=== PATIENT | male | born 1950 | race Caucasian/White ===

== ENCOUNTER 2019-02-08 15:44 | Inpatient (IN) ==
[2019-02-08] MEDS ORDERED: methylPREDNISolone 125 MG/2 ML VIAL IVP ONE (15:50)
[2019-02-08] MEDS ORDERED: Ipratropium/Albuterol Neb 3 ML IH ONE (15:51)
--- NOTE | 2019-02-08 15:53 | Emergency Department Note ---
Disposition Clinical Impression: Hypoxia, COPD exacerbation Sepsis Qualifiers: Sepsis type: sepsis due to unspecified organism Qualified Code(s): A41.9 - Sepsis, unspecified organism Pneumonia Qualifiers: Pneumonia type: due to unspecified organism Laterality: left Lung location: lower lobe of lung Qualified Code(s): J18.1 - Lobar pneumonia, unspecified organism Disposition: Admitted As Inpatient Condition: Fair Time of Disposition: 17:26 General Adult HPI - General Stated complaint: ERNIE Time Seen by Provider: 02/08/19 15:46 Source: patient Mode of arrival: private vehicle Limitations: no limitations Nursing Notes Reviewed: Yes Vital Signs Reviewed: Yes - History of Present Illness HPI Narrative: Patient is a 68-year-old male with past medical history including COPD, not on oxygen at home, hypertension presenting with chief complaint of shortness of breath. The patient states several weeks ago, he found a tick on himself and went to his physician to have it removed. He states he was started on antibiotics for prevention of lyme. Since then, he complains of progressively worsening shortness of breath. He states it has been worse in the past 3 days. His breathing worsens with exertion. He denies chest pain. He states yesterday he felt like he had a fever however did not check his temperature. He complains of decreased appetite as well. He states today at lunchtime he was at [place] [employer] and did not feel like eating. When he was in the car, he suddenly developed shortness of breath and lightheadedness. He came here for further evaluation. In triage, he was hypoxic with oxygen saturation of 79%. - Related Data Allergies Allergy/AdvReac Type Severity Reaction Status Date / Time No Known Allergies Allergy Verified 07/30/18 12:58 All systems ED: reviewed and negative except as stated. Review of Systems: As Per HPI Constitutional: Reports: fever, chills Cardiovascular: Reports: other (lightheaded). Denies: chest pain, palpitations Respiratory: Reports: dyspnea. Denies: cough Gastrointestinal: Reports: nausea. Denies: abdominal pain, vomiting Musculoskeletal: Denies: back pain Neurological: Denies: headache, weakness Past Medical History - Past Medical History Attestation: Yes The following information was validated with the patient. Source: patient Medical history: Reports: asthma, COPD, hypertension Surgical history: Reports: non-contributory - Social History Smoking Status: Former smoker Physical Exam - General Limitations: no limitations General appearance: alert, other (Moderate distress with conversational dyspnea and hypoxia) - Head Head exam: atraumatic, normocephalic - Eye Eye exam: Present: normal appearance, EOMI - ENT ENT exam: normal exam, mucous membranes moist - Neck Neck exam: Present: normal inspection, trachea midline - Chest Chest inspection: Present: normal inspection, symmetric chest wall rise - Respiratory Respiratory exam: Present: other (Diminished breath sounds bilaterally, tachypnea, conversational dyspnea. No wheezing or crackles) - Cardiovascular Cardiovascular exam: Present: normal rhythm, tachycardia - Abdominal Exam Abdominal exam: Present: soft, Non-Tender. Absent: distention, guarding - Extremities Exam Extremities exam: Present: normal capillary refill. Absent: pedal edema, calf tenderness - Neurological Exam Neurological exam: Present: alert, oriented X3 - Psychiatric Psychiatric exam: Present: normal affect, normal mood - Skin Skin exam: Present: warm, dry. Absent: cyanosis, diaphoresis, pallor Course Vital Signs Temperature 98.5 F 02/08/19 15:50 Pulse Rate 107 02/08/19 15:50 Respiratory Rate 25 02/08/19 15:50 Blood Pressure 120/87 02/08/19 15:50 O2 Sat by Pulse Oximetry 91 02/08/19 15:50 Temperature 98.5 F 02/08/19 15:50 Pulse Rate 95 02/08/19 17:17 Respiratory Rate 20 02/08/19 17:17 Blood Pressure 126/82 02/08/19 17:17 O2 Sat by Pulse Oximetry 93 02/08/19 17:17 Oxygen Delivery Oxygen Delivery Nasal Cannula Medical Decision Making - [facility] Narrative Medical decision making narrative: The patient was brought back to the room and was found to be hypoxic with oxygen saturation of 79%. He does have history of emphysema and does not wear oxygen at home. He was placed on 4 L of oxygen with oxygen saturation increasing to 92%. Will give the patient triple DuoNeb treatment. We will obtain chest x- ray, CBC, BMP, troponin, BNP. We will give him methylprednisolone as well. Patient denies history of blood clots, is not on anticoagulation. He denies cardiac history as well. No congestive heart failure, no lower extremity swell ing. Anticipate admission for hypoxia and COPD exacerbation. 16:40 CXR shows left basilar airspace disease due to atelectasis or developing pneumonia. Patient has leukocytosis, elevated lactic acid. He meets SIRS criteria. We will give the patient IV fluids, azithromycin and Rocephin. Blood cultures will be drawn. Patient will be admitted for dyspnea, hypoxia and sepsis likely secondary to pneumonia. 17:15 Reevaluated the patient after his DuoNeb treatment. He states he feels somewhat better. He is now on 2 L of oxygen, oxygen saturation is 92-94%. Breath sounds are increased bilaterally but still diminished, more on the left than on the right. No wheezing. Hospitalist has been paged for admission. 17:[address] Casillas, hospitalist who accepts admission - Medical Records Medical records reviewed: Yes I reviewed the patient's medical records. - Lab Data Lab results reviewed: Yes I reviewed the patient's lab results. Result diagrams: 02/08/19 16:00 02/08/19 16:00 Lab Results 02/08/19 02/08/19 02/08/19 Range/Units 16:00 16:00 16:00 WBC 15.9 H (4.3-11.1) K/mcL RBC 4.84 (4.19-5.50) M/mcL Hgb 15.5 (12.9-16.9) g/dL Hct 47.1 (37.5-50.1) % MCV 97.3 (83.0-100.0) fL MCH 32.0 (28.0-33.3) pg MCHC 32.9 (31.6-35.5) g/dL RDW 15.5 H (11.5-14.5) % Plt Count 375 (140-400) K/mcL MPV 9.2 L (9.4-12.4) fL Immature Gran % 0.6 (0-4) % Seg Neutrophils % 72.1 % Lymphocytes % 9.5 % Monocytes % 7.7 % Eosinophils % 9.8 % Basophils % 0.3 % Neutrophils # 11.5 H (1.6-8.9) K/mcL Lymphocytes # 1.5 (0.6-4.6) K/mcL Monocytes # 1.2 (0.0-1.3) K/mcL Eosinophils # 1.6 H (0.0-0.6) K/mcL Basophils # 0.0 (0.0-0.2) K/mcL PT (9.4-12.1) Seconds INR APTT (26.0-36.0) Seconds Sodium 139 (136-145) mEq/L Potassium 3.8 (3.5-5.1) mEq/L Chloride 105 (98-107) mEq/L Carbon Dioxide 26 (23-29) mEq/L BUN 15 (8-23) mg/dL Creatinine 1.10 (0.70-1.30) mg/dL Est GFR ( Amer) > 60 (> 60) Est GFR (Non-Af Amer) > 60 (> 60) BUN/Creatinine Ratio 14 (6-26) Glucose 101 (70-105) mg/dL Calculated Osmolality 289 (280-300) Lactic Acid 2.6 H (0.5-2.2) mmol/L Calcium 9.2 (8.6-10.3) mg/dL Total Bilirubin 1.0 (0.3-1.0) mg/dL Direct Bilirubin 0.2 (0.0-0.2) mg/dL Indirect Bilirubin 0.8 (0.0-1.2) mg/dL AST 24 (13-39) Units/L ALT 28 (7-52) Units/L Alkaline Phosphatase 96 (34-104) Units/L Troponin I 0.03 (< 0.04) ng/mL B-Natriuretic Peptide (Less than 100) pg/mL Serum Total Protein 6.7 (6.4-8.9) g/dL Albumin 3.6 (3.5-5.7) g/dL Globulin 3.1 (2.4-3.5) g/dL Albumin/Globulin Ratio 1.2 (1.1-2.2) 02/08/19 02/08/19 Range/Units 16:00 16:00 WBC (4.3-11.1) K/mcL RBC (4.19-5.50) M/mcL Hgb (12.9-16.9) g/dL Hct (37.5-50.1) % MCV (83.0-100.0) fL MCH (28.0-33.3) pg MCHC (31.6-35.5) g/dL RDW (11.5-14.5) % Plt Count (140-400) K/mcL MPV (9.4-12.4) fL Immature Gran % (0-4) % Seg Neutrophils % % Lymphocytes % % Monocytes % % Eosinophils % % Basophils % % Neutrophils # (1.6-8.9) K/mcL Lymphocytes # (0.6-4.6) K/mcL Monocytes # (0.0-1.3) K/mcL Eosinophils # (0.0-0.6) K/mcL Basophils # (0.0-0.2) K/mcL PT 13.0 H (9.4-12.1) Seconds INR 1.2 APTT 28.5 (26.0-36.0) Seconds Sodium (136-145) mEq/L Potassium (3.5-5.1) mEq/L Chloride (98-107) mEq/L Carbon Dioxide (23-29) mEq/L BUN (8-23) mg/dL Creatinine (0.70-1.30) mg/dL Est GFR ( Amer) (> 60) Est GFR (Non-Af Amer) (> 60) BUN/Creatinine Ratio (6-26) Glucose (70-105) mg/dL Calculated Osmolality (280-300) Lactic Acid (0.5-2.2) mmol/L Calcium (8.6-10.3) mg/dL Total Bilirubin (0.3-1.0) mg/dL Direct Bilirubin (0.0-0.2) mg/dL Indirect Bilirubin (0.0-1.2) mg/dL AST (13-39) Units/L ALT (7-52) Units/L Alkaline Phosphatase (34-104) Units/L Troponin I (< 0.04) ng/mL B-Natriuretic Peptide 93 (Less than 100) pg/mL Serum Total Protein (6.4-8.9) g/dL Albumin (3.5-5.7) g/dL Globulin (2.4-3.5) g/dL Albumin/Globulin Ratio (1.1-2.2) - Radiology Data Radiology results reviewed: Yes I reviewed the patient's radiology results. Chest X-Ray 02/08/19 15:50 IMPRESSION: 1. Left basilar airspace disease either due to atelectasis or developing pneumonia. D/ / Bhavin Pulido MD / Bhavin Pulido MD Interpreting Provider: Bhavin Pulido MD - EKG Data EKG #1 EKG attestation: Yes I reviewed and interpreted this EKG. EKG results narrative: EKG obtained at 1552 shows sinus tachycardia with heart rate 107, DE interval 166, QRS duration 90, QTc 479. No ST elevation or depression Attestation Statement - Attestation Attestation: I, Maximus Mauricio DO, examined this patient [id number] and my medical decision-making was reviewed with Dr. Coco Sinclair , Resident Physician. I agree with the documented findings, disposition and treatment plan as described except to the extent set forth below. I personally supervised and was present for the negrete/critical portions of the procedures completed by the resident documented below. Please see my progress notes for details.
[2019-02-08 16:12] LABS: Basophils % 0.3 %; Eosinophils # 1.6 K/mcL (0.0-0.6); Eosinophils % 9.8 %; Hematocrit 47.1 % (37.5-50.1); Hemoglobin 15.5 g/dL (12.9-16.9); Immature Granulocytes % 0.6 % (0-4); Lymphocytes # 1.5 K/mcL (0.6-4.6); Lymphocytes % 9.5 %; Mean Corpuscular HGB Conc 32.9 g/dL (31.6-35.5); Mean Corpuscular Volume 97.3 fL (83.0-100.0); Mean Platelet Volume 9.2 fL (9.4-12.4); Monocytes # 1.2 K/mcL (0.0-1.3); Monocytes % 7.7 %; Neutrophils # 11.5 K/mcL (1.6-8.9); Platelet Count 375 K/mcL (140-400); Red Blood Count 4.84 M/mcL (4.19-5.50); Red Cell Distribution Width 15.5 % (11.5-14.5); Segmented Neutrophils % 72.1 %
[2019-02-08 16:20] LABS: INR 1.2
[2019-02-08 16:23] LABS: Activated Partial Thrombo Time 28.5 Seconds (26.0-36.0)
[2019-02-08 16:33] LABS: Alanine Aminotransferase 28 Units/L (7-52); Albumin 3.6 g/dL (3.5-5.7); Albumin/Globulin Ratio 1.2 (1.1-2.2); Alkaline Phosphatase 96 Units/L (34-104); Aspartate Amino Transferase 24 Units/L (13-39); BUN/Creatinine Ratio 14 (6-26); Bilirubin,Direct 0.2 mg/dL (0.0-0.2); Bilirubin,Indirect 0.8 mg/dL (0.0-1.2); Blood Urea Nitrogen 15 mg/dL (8-23); Calcium 9.2 mg/dL (8.6-10.3); Carbon Dioxide 26 mEq/L (23-29); Chloride 105 mEq/L (98-107); Globulin 3.1 g/dL (2.4-3.5); Glucose 101 mg/dL (70-105); Osmolality,Calculated 289 (280-300); Potassium 3.8 mEq/L (3.5-5.1); Sodium 139 mEq/L (136-145); Total Protein 6.7 g/dL (6.4-8.9); Troponin I 0.03 ng/mL (< 0.04); eGFR For Non-African Americans > 60 (> 60)
[2019-02-08] MEDS ORDERED: 0.9 % Sodium Chloride 1,000 ML IVC ONE (16:38)
[2019-02-08] MEDS ORDERED: cefTRIAXone 1,000 MG in Water for inj. (sterile) 20 ML 10 ML IVP ONE (16:41)
[2019-02-08] MEDS ORDERED: Azithromycin 500 MG in D5% in Water 250 ML IVPB ONE (16:41)
[2019-02-08] MEDS ORDERED: traMADol 50 MG TABLET PO PRN (17:34)
[2019-02-08] MEDS ORDERED: Naloxone 0.4 MG/ML INJ IVP PRN (17:34)
[2019-02-08] MEDS ORDERED: D5% in Water 1,000 ML IVC PRN (17:37)
[2019-02-08] MEDS ORDERED: *HR* Dextrose 50 % in Water (Syg) 50 ML SYRINGE IVP PRN (17:37)
[2019-02-08] MEDS ORDERED: Dextrose Gel 15 GM/37.5 ML TUBE PO PRN ×2 (17:37)
--- NOTE | 2019-02-08 17:41 | Emergency Department Note ---
Disposition Clinical Impression: Hypoxia, COPD exacerbation Sepsis Qualifiers: Sepsis type: sepsis due to unspecified organism Qualified Code(s): A41.9 - Sepsis, unspecified organism Pneumonia Qualifiers: Pneumonia type: due to unspecified organism Laterality: left Lung location: lower lobe of lung Qualified Code(s): J18.1 - Lobar pneumonia, unspecified organism Disposition: Admitted As Inpatient Condition: Fair Time of Disposition: 17:42 General Adult HPI - General Chief complaint: ED Shortness of Breath/Dyspnea Stated complaint: ERNIE Time Seen by Provider: 02/08/19 15:46 Source: patient Mode of arrival: private vehicle Limitations: no limitations - History of Present Illness Pain Scale: 0 - Related Data Allergies Allergy/AdvReac Type Severity Reaction Status Date / Time No Known Allergies Allergy Verified 07/30/18 12:58 Constitutional: Reports: fever, chills Cardiovascular: Reports: other (lightheaded). Denies: chest pain, palpitations Respiratory: Reports: dyspnea. Denies: cough Gastrointestinal: Reports: nausea. Denies: abdominal pain, vomiting Musculoskeletal: Denies: back pain Neurological: Denies: headache, weakness Past Medical History - Past Medical History Medical history: Reports: asthma, COPD, hypertension Surgical history: Reports: non-contributory - Social History Smoking Status: Former smoker Smokeless Tobacco Status: No Alcohol use: Reports: none Drug use: Reports: none Physical Exam - General Limitations: no limitations General appearance: alert, other (Moderate distress with conversational dyspnea and hypoxia) Course Vital Signs Temperature 98.5 F 02/08/19 15:50 Pulse Rate 107 02/08/19 15:50 Respiratory Rate 25 02/08/19 15:50 Blood Pressure 120/87 02/08/19 15:50 O2 Sat by Pulse Oximetry 91 02/08/19 15:50 Temperature 98.5 F 02/08/19 15:50 Pulse Rate 95 02/08/19 17:17 Respiratory Rate 20 02/08/19 17:17 Blood Pressure 126/82 02/08/19 17:17 O2 Sat by Pulse Oximetry 93 02/08/19 17:17 Oxygen Delivery Oxygen Delivery Nasal Cannula Medical Decision Making - Lab Data Result diagrams: 02/08/19 16:00 02/08/19 16:00 Lab Results 02/08/19 02/08/19 02/08/19 Range/Units 16:00 16:00 16:00 WBC 15.9 H (4.3-11.1) K/mcL RBC 4.84 (4.19-5.50) M/mcL Hgb 15.5 (12.9-16.9) g/dL Hct 47.1 (37.5-50.1) % MCV 97.3 (83.0-100.0) fL MCH 32.0 (28.0-33.3) pg MCHC 32.9 (31.6-35.5) g/dL RDW 15.5 H (11.5-14.5) % Plt Count 375 (140-400) K/mcL MPV 9.2 L (9.4-12.4) fL Immature Gran % 0.6 (0-4) % Seg Neutrophils % 72.1 % Lymphocytes % 9.5 % Monocytes % 7.7 % Eosinophils % 9.8 % Basophils % 0.3 % Neutrophils # 11.5 H (1.6-8.9) K/mcL Lymphocytes # 1.5 (0.6-4.6) K/mcL Monocytes # 1.2 (0.0-1.3) K/mcL Eosinophils # 1.6 H (0.0-0.6) K/mcL Basophils # 0.0 (0.0-0.2) K/mcL PT (9.4-12.1) Seconds INR APTT (26.0-36.0) Seconds Sodium 139 (136-145) mEq/L Potassium 3.8 (3.5-5.1) mEq/L Chloride 105 (98-107) mEq/L Carbon Dioxide 26 (23-29) mEq/L BUN 15 (8-23) mg/dL Creatinine 1.10 (0.70-1.30) mg/dL Est GFR ( Amer) > 60 (> 60) Est GFR (Non-Af Amer) > 60 (> 60) BUN/Creatinine Ratio 14 (6-26) Glucose 101 (70-105) mg/dL Calculated Osmolality 289 (280-300) Lactic Acid 2.6 H (0.5-2.2) mmol/L Calcium 9.2 (8.6-10.3) mg/dL Total Bilirubin 1.0 (0.3-1.0) mg/dL Direct Bilirubin 0.2 (0.0-0.2) mg/dL Indirect Bilirubin 0.8 (0.0-1.2) mg/dL AST 24 (13-39) Units/L ALT 28 (7-52) Units/L Alkaline Phosphatase 96 (34-104) Units/L Troponin I 0.03 (< 0.04) ng/mL B-Natriuretic Peptide (Less than 100) pg/mL Serum Total Protein 6.7 (6.4-8.9) g/dL Albumin 3.6 (3.5-5.7) g/dL Globulin 3.1 (2.4-3.5) g/dL Albumin/Globulin Ratio 1.2 (1.1-2.2) 02/08/19 02/08/19 Range/Units 16:00 16:00 WBC (4.3-11.1) K/mcL RBC (4.19-5.50) M/mcL Hgb (12.9-16.9) g/dL Hct (37.5-50.1) % MCV (83.0-100.0) fL MCH (28.0-33.3) pg MCHC (31.6-35.5) g/dL RDW (11.5-14.5) % Plt Count (140-400) K/mcL MPV (9.4-12.4) fL Immature Gran % (0-4) % Seg Neutrophils % % Lymphocytes % % Monocytes % % Eosinophils % % Basophils % % Neutrophils # (1.6-8.9) K/mcL Lymphocytes # (0.6-4.6) K/mcL Monocytes # (0.0-1.3) K/mcL Eosinophils # (0.0-0.6) K/mcL Basophils # (0.0-0.2) K/mcL PT 13.0 H (9.4-12.1) Seconds INR 1.2 APTT 28.5 (26.0-36.0) Seconds Sodium (136-145) mEq/L Potassium (3.5-5.1) mEq/L Chloride (98-107) mEq/L Carbon Dioxide (23-29) mEq/L BUN (8-23) mg/dL Creatinine (0.70-1.30) mg/dL Est GFR ( Amer) (> 60) Est GFR (Non-Af Amer) (> 60) BUN/Creatinine Ratio (6-26) Glucose (70-105) mg/dL Calculated Osmolality (280-300) Lactic Acid (0.5-2.2) mmol/L Calcium (8.6-10.3) mg/dL Total Bilirubin (0.3-1.0) mg/dL Direct Bilirubin (0.0-0.2) mg/dL Indirect Bilirubin (0.0-1.2) mg/dL AST (13-39) Units/L ALT (7-52) Units/L Alkaline Phosphatase (34-104) Units/L Troponin I (< 0.04) ng/mL B-Natriuretic Peptide 93 (Less than 100) pg/mL Serum Total Protein (6.4-8.9) g/dL Albumin (3.5-5.7) g/dL Globulin (2.4-3.5) g/dL Albumin/Globulin Ratio (1.1-2.2) Attestation Statement - Attestation Attestation: I, Maximus Mauricio DO, examined this patient [id number] and my medical decision-making was reviewed with Dr. Coco Sinclair , Resident Physician. I agree with the documented findings, disposition and treatment plan as described except to the extent set forth below. I personally supervised and was present for the negrete/critical portions of the procedures completed by the resident documented below. Please see my progress notes for details. 68-year-old male presents emergency room with shortness of breath. Today he was eating dinner and felt like he could not get his air. He was to the point where he was unable to breathe and had to stop eating food and come out to the emergency room for evaluation. Patient denies any falls trauma or injury. He does have a history of emphysema. He does not typically use oxygen at home. He has not had any productive cough or sputum that he describes at this time. Denies any chest pain fevers or chills. Patient's pulse ox in triage was 79%. Heart rate and blood pressure were normal. Patient denies any changes in medications travel outside the country. He said this happen one time in the past. He has never needed intubated for symptomatic control her treatment. Patient is working hard to breathe. He has accessory muscle use at this time. Lungs are tight. Breathing treatments steroids will be started at this point. Oxygen supplementation will be applied. Heart is regular. Abdomen is soft nontender nondistended with no guarding no rigidity no peritoneal symptoms at this point. No pulsatile masses or lesions. Extremities appear to be normal with no signs of pitting edema abnormality. He has no guarding or rigidity at this time. She has no signs of ataxia. No neurologic deficits at this point. Patient does answer questions appropriately and follows commands. Vital signs otherwise stable. Detailed workup with CT imaging of the head CT the abdomen chest x-ray EKG CBC chemistry and all the labs will be collected this time including ammonia. Disposition pending full workup and treatment course. See detailed documentation the physical exam, medical intervention, medical decision-making and disposition in the resident physician's note. No critical care applied the patient's treatment course at this time 1700 Patient is feeling much better after the breathing treatments. He does have a left lower lobe pneumonia. Blood cultures along with antibiotics azithromycin and Rocephin were started here. Patient does meet SIRS criteria as well as sepsis but not signs of septic shock. His blood pressure and lactic acid of been normal. One single liter of fluid will be given and the patient will be monitored. Repeat lactic acid has been ordered. Patient is otherwise resting more comfortably in the bed at this time. Patient was discussed with the hospitalist Dr. Casillas. No other recommendations or concerns are noted at this time. Patient is otherwise clinically stable. We will monitor here in the emergency department until the admission process is completed.
--- NOTE | 2019-02-08 18:04 | Internal Med History&Physical ---
Date of Encounter: 02/08/19 Time of Encounter: 17:58 Internal Medicine - H&P: HPI Chief complaint: shortness of breath Plans for Post Hospital Care: Home History of present illness: Mr. Salcedo is a 68 year old male PMH of HTN, pre-diabetis, and COPD not on O2. Patient presented to the ED due to shortness of breath. He reports that about 2 weeks ago he started feeling short of breath and he went to his PCP and was prescribe some antibiotics and a steroids taper. Reports his symptoms improved for a couple of days but for the past 4 days he has been feeling short of breath, the shortness of breath has worsens to the point he is short of breath even talking on the phone. He denies chest pain, fever but reports chills. Reports a non-productive cough for the most part but reports intermittent clear sputum production. In triage, he was hypoxic with oxygen saturation of 79%. He also reports that about 2 weeks ago he found a tick on his body and went to his PCP and was prescribed antibiotics for possible lyme. Patient also reports buning 5/10 epigastric abdominal pain every time he eats something. Reports intentional weight lost of about 40 pounds for the past 7 months. Stated that he has cut down in the amount of carbs and calories he is eating. Denies seeing blood in his urine or in his stool. Past Med Surg Social Fam HX - Past Medical History Medical history: asthma, COPD, hypertension Additional medical history: pre-diabetes - Past Surgical History Surgical History: non-contributory - Social History Smoking Status: Former smoker Smokeless Tobacco Status: No Alcohol use: none Drug use: none - Family History Father History Unknown: Yes Family Member Ethnicity: Non- Living Status: Unknown Internal Medicine - H&P: Meds Allergy/AdvReac Type Severity Reaction Status Date / Time No Known Allergies Allergy Verified 07/30/18 12:58 All Systems PM: A 10-system review of systems was performed and is negative for pertinent findings except as documented above in the HPI. - Constitutional Constitutional: chills, no fever(s), no weakness - EENT Eyes: no blurry vision, no change in vision, no itchy eyes - Cardiovascular Cardiovascular ROS IM: dyspnea, dyspnea on exertion, no chest pain, no lightheadedness, no palpitations - Respiratory Respiratory: cough, dyspnea on exertion, wheezing, no chest congestion, no excessive phlegm production - Gastrointestinal Gastrointestinal: abdominal pain, no nausea, no vomiting - Genitourinary Genitourinary ROS male: no dysuria, no urinary frequency, no urinary incontinence - Musculoskeletal Musculoskeletal ROS IM: no atrophy, no back pain, no myalgias - Integumentary Integumentary IM: no erythema, no sores - Neurological Neurological ROS: no abnormal speech, no headache(s) - Psychiatric Psychiatric: no anxiety, no hopelessness, no irritability - Endocrine Endocrine IM: no cold intolerance, no excessive sweating - Allergic/Immunologic Allergic/Immunologic: no GI upset with certain foods - Constitutional Vitals: Temp Pulse Resp BP Pulse Ox 98.5 F 95 20 126/82 93 02/08/19 15:50 02/08/19 17:17 02/08/19 17:17 02/08/19 17:17 02/08/19 17:17 Exam: Vitals: Reviewed General: Alert and oriented x4. In mild distress due to shortness of breath Skin: Normal color, no rash, no lesions. HEENT: EOM, pupils equal, round and reactive. Cardiovascular: RRR, normal S1 & S2, no rubs, murmurs or gallops. Lungs: scattered expiratory wheezes b/l, no rales or crackles. Abdomen: Soft, non-tender, no rigidity. Extremities: No deformity, no edema or tenderness, no joint swelling or clubbing. Neurological: Normal cognition and motor skills. Rest of the physical exam is non contributory Internal Med - H&P Results - Labs CBC & Chem 7: 02/08/19 16:00 02/08/19 16:00 Labs: Short CBC 02/08/19 Range/Units 16:00 WBC 15.9 H (4.3-11.1) K/mcL Hgb 15.5 (12.9-16.9) g/dL Hct 47.1 (37.5-50.1) % Plt Count 375 (140-400) K/mcL Neutrophils # 11.5 H (1.6-8.9) K/mcL BMP 02/08/19 16:00 Sodium 139 Potassium 3.8 Chloride 105 Carbon Dioxide 26 BUN 15 Creatinine 1.10 Glucose 101 Calcium 9.2 Cardiac Enzymes 02/08/19 Range/Units 16:00 Troponin I 0.03 (< 0.04) ng/mL Liver Function 02/08/19 Range/Units 16:00 Total Bilirubin 1.0 (0.3-1.0) mg/dL Direct Bilirubin 0.2 (0.0-0.2) mg/dL AST 24 (13-39) Units/L ALT 28 (7-52) Units/L Alkaline Phosphatase 96 (34-104) Units/L Albumin 3.6 (3.5-5.7) g/dL - Impressions ITS Impressions Chest X-Ray 02/08/19 15:50 IMPRESSION: 1. Left basilar airspace disease either due to atelectasis or developing pneumonia. D/ / Bhavin Pulido MD / Bhavin Pulido MD Interpreting Provider: Bhavin Pulido MD - Diagnostic Studies Chest x-ray Status: image reviewed by me (Possible left lower lobe infiltrate ) - Assessment and Plan (1) Acute hypoxemic respiratory failure Current Visit: Yes Status: Acute Assessment and plan: In triage, he was hypoxic with oxygen saturation of 79%. due to copd exacerbation. Plan Started on bronchodilators Q4RT scheduled solu-medrol 125mg/IV x1 Solu-Medrol 40mg/IV Q12hr started on empiric antibiotics coverage with azithromycin 500mg/IV daily and ceftriaxone 1gm/IV daily Sputum culture and gram stain urine for atypical organism O2 by nasal cannula, titrate for O2Sat >92% (2) COPD exacerbation Current Visit: Yes Status: Acute Assessment and plan: plan of care as above (3) Pneumonia Current Visit: Yes Status: Acute Assessment and plan: XR/XR chest 1V portable IMPRESSION: 1. Left basilar airspace disease either due to atelectasis or developing pneumonia. patient started on empiric antibiotics for CAP. Qualifiers: Pneumonia type: due to unspecified organism Laterality: left Lung location: lower lobe of lung Qualified Code(s): J18.1 - Lobar pneumonia, unspecified organism (4) DVT prophylaxis Current Visit: Yes Status: Acute Assessment and plan: started on heparin subQ (5) Pre-diabetes Current Visit: Yes Status: Acute Assessment and plan: A1C, started on lispro low dose sliding scale. carb controlled diet (6) Epigastric abdominal pain Current Visit: Yes Status: Acute Assessment and plan: possible due to gastritis. patient reports GERD like symptoms. started on omeprazole 20mg/PO daily. - Time Spent With Patient Total time spent is greater than 50% in coordination of care (as documented) at patient's floor/unit and/or counseling patient: Greater than 35 minutes (45)
[2019-02-08] MEDS: Ipratropium/Albuterol Neb 3 ML IH SCH (19:42)
[2019-02-08] MEDS: 0.9 % Sodium Chloride 1,000 ML IVC SCH (20:27)
[2019-02-08] MEDS: *HR* Heparin 5,000 UNIT/ML VIAL SQ SCH (20:31)
[2019-02-09] MEDS: Ipratropium/Albuterol Neb 3 ML IH SCH ×7 (00:19→23:54)
[2019-02-09] MEDS: MethylPREDNISolone 40 MG/ML VIAL IVP SCH ×2 (05:24→18:10)
[2019-02-09] MEDS: *HR* Heparin 5,000 UNIT/ML VIAL SQ SCH ×3 (05:24→21:37)
[2019-02-09 05:31] LABS: Basophils % 0.1 %; Eosinophils % 0.1 %; Hematocrit 40.7 % (37.5-50.1); Immature Granulocytes % 0.6 % (0-4); Lymphocytes # 0.5 K/mcL (0.6-4.6); Lymphocytes % 6.2 %; Mean Corpuscular HGB Conc 32.4 g/dL (31.6-35.5); Mean Corpuscular Hemoglobin 31.7 pg (28.0-33.3); Mean Corpuscular Volume 97.8 fL (83.0-100.0); Mean Platelet Volume 9.6 fL (9.4-12.4); Monocytes # 0.2 K/mcL (0.0-1.3); Monocytes % 2.9 %; Neutrophils # 7.5 K/mcL (1.6-8.9); Platelet Count 293 K/mcL (140-400); Red Blood Count 4.16 M/mcL (4.19-5.50); Red Cell Distribution Width 15.1 % (11.5-14.5); Segmented Neutrophils % 90.1 %
[2019-02-09 05:32] LABS: Hemoglobin 13.2 g/dL (12.9-16.9)
[2019-02-09 05:51] LABS: BUN/Creatinine Ratio 19 (6-26); Blood Urea Nitrogen 19 mg/dL (8-23); Calcium 8.6 mg/dL (8.6-10.3); Carbon Dioxide 25 mEq/L (23-29); Chloride 106 mEq/L (98-107); Glucose 176 mg/dL (70-105); Magnesium 2.1 mg/dL (1.6-2.6); Osmolality,Calculated 293 (280-300); Phosphorous 1.9 mg/dL (2.7-4.5); Potassium 3.7 mEq/L (3.5-5.1); Sodium 138 mEq/L (136-145); eGFR For Non-African Americans > 60 (> 60)
[2019-02-09] MEDS: Insulin LISPRO 300 UNITS/3 ML VIAL SQ SCH ×3 (07:48→15:52)
[2019-02-09] MEDS: 0.9 % Sodium Chloride 1,000 ML IVC SCH (07:48)
[2019-02-09] MEDS ORDERED: cefTRIAXone 1,000 MG in Water for inj. (sterile) 20 ML 10 ML IVP SCH (09:00)
--- NOTE | 2019-02-09 10:07 | Internal Med Progress Note ---
Hospitalist Progress Note - Encounter Date of Encounter: 02/09/19 Time of Encounter: 10:04 - Subjective Interval History: I have seen and evaluated the patient at bedside. patient reports feeling better less short of breath, but report intermittent non-productive cough associated with wheezing. denies chest pain, nausea or vomiting. - Exam Vitals: Temp Pulse Resp BP Pulse Ox 98.0 F 76 18 105/66 94 02/09/19 07:36 02/09/19 07:36 02/09/19 07:39 02/09/19 07:36 02/09/19 07:39 Exam: Vitals: Reviewed General: Alert and oriented x4. In mild distress due to intermittent coughing Cardiovascular: RRR, normal S1 & S2, no rubs, murmurs or gallops. Lungs: mild scattered expiratory wheezes b/l, no rales or crackles. Abdomen: Soft, non-tender, no rigidity. NABS in all 4 quadrants Extremities: No edema Neurological: Normal cognition Rest of the physical exam is non contributory - Assessment and Plan (1) Acute hypoxemic respiratory failure Current Visit: Yes Status: Acute Assessment and Plan: patient continues to require 4 litters of O2 by nasal cannula to keep O2 sat >92%. patient does not use O2 at home. Plan ABG will continue methyl-solumedrol 40mg/IV Q12HR on broncodilators will discontinue ceftriaxone and azithromycin levofloxacin 750mg/PO daily added O2 qualification ordered (2) COPD exacerbation Current Visit: Yes Status: Acute Assessment and Plan: plan of care as above. (3) Pneumonia Current Visit: Yes Status: Acute Assessment and Plan: XR/XR chest 1V portable IMPRESSION: 1. Left basilar airspace disease either due to atelectasis or developing pneumonia. continue levofloxacin 750mg/PO daily urine for atypical organism negative (4) Pre-diabetes Current Visit: Yes Status: Acute Assessment and Plan: continue carbs controlled diet plus lispro low dose sliding scale ac. (5) Epigastric abdominal pain Current Visit: Yes Status: Acute Assessment and Plan: on omeprazole 20mg/PO daily (6) Hypophosphatemia Current Visit: Yes Status: Acute Assessment and Plan: electrolyte replaced DVT Prophylaxis: Heparin SubQ - Summary of Assessment and Plan Summary of Assessment and Plan: patient to remain in the hospital due to hypoxemic respiratory failure, copd exacerbation on high dose IV steroids. potential discharge tomorrow morning - Time Spent with Patient Total time spent is greater than 50% in coordination of care (as documented) at patient's floor/unit and/or counseling patient: Greater than 35 minutes (40) Plan of Care Discussed with: patient (and the nurse.) Internal Medicine: Result - Labs CBC & Chem 7: 02/09/19 04:57 02/09/19 04:57 Labs: Short CBC 02/08/19 02/09/19 Range/Units 16:00 04:57 WBC 15.9 H 8.4 (4.3-11.1) K/mcL Hgb 15.5 13.2 D (12.9-16.9) g/dL Hct 47.1 40.7 (37.5-50.1) % Plt Count 375 293 (140-400) K/mcL Neutrophils # 11.5 H 7.5 (1.6-8.9) K/mcL BMP 02/08/19 02/09/19 16:00 04:57 Sodium 139 138 Potassium 3.8 3.7 Chloride 105 106 Carbon Dioxide 26 25 BUN 15 19 Creatinine 1.10 1.01 Glucose 101 176 H Calcium 9.2 8.6 Cardiac Enzymes 02/08/19 Range/Units 16:00 Troponin I 0.03 (< 0.04) ng/mL Liver Function 02/08/19 Range/Units 16:00 Total Bilirubin 1.0 (0.3-1.0) mg/dL Direct Bilirubin 0.2 (0.0-0.2) mg/dL AST 24 (13-39) Units/L ALT 28 (7-52) Units/L Alkaline Phosphatase 96 (34-104) Units/L Albumin 3.6 (3.5-5.7) g/dL - ABG Interpretation ABG results: PT/INR, D-dimer PT 13.0 Seconds (9.4-12.1) H 02/08/19 16:00 - Impressions Impressions Chest X-Ray 02/08/19 15:50 IMPRESSION: 1. Left basilar airspace disease either due to atelectasis or developing pneumonia. D/ / Bhavin Pulido MD / Bhavin Pulido MD Interpreting Provider: Bhavin Pulido MD Consult Discharge Plan - Plan Referrals: Bryce Garcia MD [Primary Care Provider] - __ (3) Pneumonia Qualifiers: Pneumonia type: due to unspecified organism Laterality: left Lung location: lower lobe of lung Qualified Code(s): J18.1 - Lobar pneumonia, unspecified organism
[2019-02-09 10:54] LABS: ABG Base Excess 1 mEq/L (-2 to 3); ABG HCO3 26 mEq/L (21-27); ABG Oxygen Saturation 90 % (95-98); ABG PCO2 41 mmHg (35-45); ABG PO2 59 mmHg (85-104); ABG TCO2 27 mEq/L (20-26)
--- NOTE | 2019-02-09 11:11 | Electrocardiograph Report ---
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
[2019-02-09] MEDS: levoFLOXacin 750 MG TABLET PO SCH (11:40)
[2019-02-09 11:50] LABS: Estimated Average Glucose 97 mg/dl
[2019-02-09] MEDS ORDERED: Azithromycin 500 MG in D5% in Water 250 ML IVPB SCH (17:00)
[2019-02-10] MEDS: Ipratropium/Albuterol Neb 3 ML IH SCH ×6 (03:54→23:53)
[2019-02-10] MEDS: *HR* Heparin 5,000 UNIT/ML VIAL SQ SCH ×3 (05:50→21:02)
[2019-02-10] MEDS: MethylPREDNISolone 40 MG/ML VIAL IVP SCH (05:51)
[2019-02-10] MEDS ORDERED: clonazePAM 1 MG TABLET PO ONE (05:55)
[2019-02-10] MEDS ORDERED: Furosemide 20 MG/2 ML VIAL IVP ONE (05:58)
[2019-02-10] MEDS ORDERED: Isovue-370 500 ML BOTTLE IVP ONE (07:29)
--- NOTE | 2019-02-10 09:08 | Internal Med Progress Note ---
Hospitalist Progress Note - Encounter Date of Encounter: 02/10/19 Time of Encounter: 09:06 - Subjective Interval History: I have seen and evaluated the patient at bedside. as per night float report patient required higher O2 supplement overnight, O2 supplementation was increased to 8 litters overnight. Patient in no distress during my evaluation this morning. paradoxically he reports improvement in his breathing despite increased O2 requirements. denies chest pain, nausea, vomiting, abdominal pain or loose stool. - Exam Vitals: Temp Pulse Resp BP Pulse Ox 98.0 F 78 16 136/82 94 02/10/19 07:15 02/10/19 07:15 02/10/19 07:21 02/10/19 07:15 02/10/19 07:21 Exam: Vitals: Reviewed General: Alert and oriented x4. In no distress Cardiovascular: RRR, normal S1 & S2, no rubs, murmurs or gallops. Lungs: No wheezes, minimal crackles/rales right lower lobe. Abdomen: Soft, non-tender, no rigidity. Extremities: No deformity, no edema or tenderness, no joint swelling or clubbing. Neurological: Normal cognition and motor skills. Rest of the physical exam is non contributory - Assessment and Plan (1) Acute hypoxemic respiratory failure Current Visit: Yes Status: Acute Assessment and Plan: patient continues requiring >5 litters of O2 by nasal cannula for an O2Sat >92%. chest x-ray with possible worsening pneumonia vs pulmonary vascular conges tion/edema. patient with a positive fluid balance of 3.3 litters. Plan CTA of the chest ordered to better evaluate lung parenchyma TTE to r/o CHF or pulmonary HTN as a possible cause of his symptoms started on furosemide 40mg/IV BID fluids restriction to 1.5 litters a day strict intake and output plus daily weight d/c methyl-solumedrol started on prednisone 40mg/PO daily incentive spirometry and pulmonary toilet bronchodilators as scheduled fluids balance goal, negative to even (2) COPD exacerbation Current Visit: Yes Status: Acute Assessment and Plan: plan of care as above (3) Pneumonia Current Visit: Yes Status: Acute Assessment and Plan: on levofloxacin 750mg/PO daily. urine for atypical: negative blood culture: no growth, pending final report (4) Pre-diabetes Current Visit: Yes Status: Acute Assessment and Plan: blood sugar is well controlled. continue slipro low dose ac. carbs controlled diet. (5) Epigastric abdominal pain Current Visit: Yes Status: Chronic Assessment and Plan: Continue omeprazole 20 mg by mouth daily. (6) Hypophosphatemia Current Visit: Yes Status: Resolved DVT Prophylaxis: On heparin 5000 units subcutaneous every 8 hours. - Summary of Assessment and Plan Summary of Assessment and Plan: Patient to remain in the hospital due to hypoxemic respiratory failure, still requiring >5 litters of O2 by nasal cannula - Time Spent with Patient Total time spent is greater than 50% in coordination of care (as documented) at patient's floor/unit and/or counseling patient: Greater than 35 minutes (45) Plan of Care Discussed with: patient (and the nurse.) Internal Medicine: Result - Labs CBC & Chem 7: 02/09/19 04:57 02/09/19 04:57 - ABG Interpretation ABG results: ABG ABG pH 7.40 pH Units (7.32-7.45) 02/09/19 10:50 ABG pCO2 41 mmHg (35-45) 02/09/19 10:50 ABG pO2 59 mmHg (85-104) L 02/09/19 10:50 ABG O2 Saturation 90 % (95-98) L 02/09/19 10:50 PT/INR, D-dimer PT 13.0 Seconds (9.4-12.1) H 02/08/19 16:00 810 ng/mLFEU (0-500) H 02/09/19 10:23 - Impressions Impressions Chest X-Ray 02/10/19 02:59 IMPRESSION: Pulmonary edema with bilateral atelectasis and/or pneumonia. D/ / Steven Coy MD / Steven Coy MD Interpreting Provider: Steven Coy MD Consult Discharge Plan - Plan Referrals: Bryce Garcia MD [Primary Care Provider] - (3) Pneumonia Qualifiers: Pneumonia type: due to unspecified organism Laterality: left Lung location: lower lobe of lung Qualified Code(s): J18.1 - Lobar pneumonia, unspecified o rganism
[2019-02-10] MEDS: Furosemide 40 MG/4 ML VIAL IVP SCH ×2 (09:19→21:02)
[2019-02-10 09:25] LABS: BUN/Creatinine Ratio 18 (6-26); Blood Urea Nitrogen 19 mg/dL (8-23); Calcium 8.5 mg/dL (8.6-10.3); Carbon Dioxide 26 mEq/L (23-29); Chloride 107 mEq/L (98-107); Glucose 106 mg/dL (70-105); Osmolality,Calculated 297 (280-300); Potassium 3.7 mEq/L (3.5-5.1); Sodium 142 mEq/L (136-145); eGFR For Non-African Americans > 60 (> 60)
[2019-02-10] MEDS: Insulin LISPRO 300 UNITS/3 ML VIAL SQ SCH ×3 (09:48→17:14)
[2019-02-10] MEDS: levoFLOXacin 750 MG TABLET PO SCH (11:23)
[2019-02-10] MEDS: BuPROPion XL (24 HR) 150 MG TABLET PO SCH (11:23)
[2019-02-10] MEDS: clonazePAM 1 MG TABLET PO SCH ×2 (11:23→21:00)
[2019-02-11] MEDS: Ipratropium/Albuterol Neb 3 ML IH SCH ×5 (03:58→19:53)
[2019-02-11 04:53] LABS: Basophils % 0.1 %; Eosinophils # 0.3 K/mcL (0.0-0.6); Eosinophils % 1.9 %; Hematocrit 42.6 % (37.5-50.1); Hemoglobin 13.2 g/dL (12.9-16.9); Immature Granulocytes % 0.4 % (0-4); Lymphocytes # 2.1 K/mcL (0.6-4.6); Lymphocytes % 12.2 %; Mean Corpuscular Hemoglobin 31.5 pg (28.0-33.3); Mean Corpuscular Volume 101.7 fL (83.0-100.0); Mean Platelet Volume 9.3 fL (9.4-12.4); Monocytes # 1.6 K/mcL (0.0-1.3); Neutrophils # 13.3 K/mcL (1.6-8.9); Platelet Count 333 K/mcL (140-400); Red Blood Count 4.19 M/mcL (4.19-5.50); Red Cell Distribution Width 15.6 % (11.5-14.5); Segmented Neutrophils % 76.4 %
[2019-02-11 05:13] LABS: BUN/Creatinine Ratio 19 (6-26); Blood Urea Nitrogen 21 mg/dL (8-23); Calcium 8.5 mg/dL (8.6-10.3); Carbon Dioxide 31 mEq/L (23-29); Chloride 104 mEq/L (98-107); Glucose 88 mg/dL (70-105); Osmolality,Calculated 298 (280-300); Phosphorous 3.1 mg/dL (2.7-4.5); Potassium 3.9 mEq/L (3.5-5.1); Sodium 143 mEq/L (136-145); eGFR For Non-African Americans > 60 (> 60)
[2019-02-11] MEDS: *HR* Heparin 5,000 UNIT/ML VIAL SQ SCH ×3 (06:26→21:47)
[2019-02-11] MEDS: BuPROPion XL (24 HR) 150 MG TABLET PO SCH (07:54)
[2019-02-11] MEDS: clonazePAM 1 MG TABLET PO SCH ×3 (07:54→21:46)
[2019-02-11] MEDS: predniSONE 20 MG TABLET PO SCH (07:54)
[2019-02-11] MEDS: Furosemide 40 MG/4 ML VIAL IVP SCH ×2 (07:55→21:46)
[2019-02-11] MEDS: levoFLOXacin 750 MG TABLET PO SCH (07:55)
[2019-02-11] MEDS: Insulin LISPRO 300 UNITS/3 ML VIAL SQ SCH ×3 (08:09→16:24)
--- NOTE | 2019-02-11 10:48 | Internal Med Progress Note ---
Hospitalist Progress Note - Encounter Date of Encounter: 02/11/19 Time of Encounter: 10:42 - Subjective Interval History: I have seen and evaluated the patient at bedside. patient denies shortness of breath but patient continues to require high O2 supplement, on high flow at night and 6-8 litters of O2 by nasal cannula. no chest pain, nausea, vomiting or abdominal pain. Report loose stool. - Exam Vitals: Temp Pulse Resp BP Pulse Ox 98.4 F 93 18 125/87 92 02/11/19 08:01 02/11/19 08:01 02/11/19 08:01 02/11/19 08:01 02/11/19 08:01 Exam: Vitals: Reviewed General: Alert and oriented x4. In no distress Cardiovascular: RRR, normal S1 & S2, no rubs, murmurs or gallops. Lungs: No wheezes, minimal crackles/rales left lower lobe. Abdomen: Soft, non-tender, no rigidity. Extremities: No edema Neurological: Normal cognition Rest of the physical exam is non contributory - Assessment and Plan (1) Acute hypoxemic respiratory failure Current Visit: Yes Status: Acute Assessment and Plan: patient continues to require 8-9 litters of O2 supplement to keep O2sat >88%, no wheezing or crackles on auscultation. Multifocal pneumonia and possible interstitial edema on CTA chest. CT/CT angio chest IMPRESSION: 1. No CT evidence of a pulmonary embolism. 2. Widespread multifocal airspace consolidation throughout both lungs, most consistent with multifocal pneumonia and/or superimposed edema. Intralobular septal thickening throughout both lungs suggest an element of interstitial pulmonary edema. 3. Mild mediastinal and bilateral hilar lymphadenopathy is most likely benign and reactive in etiology. Plan will broaden antibiotics as patient continues to be persistently hypoxemic discontinue levofloxacin, started on piperacillin/tazobactam 3.375mg/IV Q8HRS continue prednisone 40mg/PO daily on bronchodilators Q4RT scheduled will add symbicort Pulmonology consulted continue furosemide 40mg/IV BID incentive spirometry blood culture: no growth, pending final report (2) COPD exacerbation Current Visit: Yes Status: Acute Assessment and Plan: plan of care as above (3) Pneumonia Current Visit: Yes Status: Acute Assessment and Plan: plan of care as per problem #1 (4) Pre-diabetes Current Visit: Yes Status: Acute Assessment and Plan: continue lispro low dose sliding scale ac. carb controlled diet (5) Epigastric abdominal pain Current Visit: Yes Status: Chronic Assessment and Plan: patient on omeprazole 20mg/PO daily (6) Hypophosphatemia Current Visit: Yes Status: Resolved DVT Prophylaxis: On heparin subQ - Summary of Assessment and Plan Summary of Assessment and Plan: Patient to remain in the hospital due to hypoxemic respiratory failure, on 8 litters of O2 by nasal cannula. - Time Spent with Patient Total time spent is greater than 50% in coordination of care (as documented) at patient's floor/unit and/or counseling patient: Greater than 35 minutes (45) Plan of Care Discussed with: patient (and the nurse.) Internal Medicine: Result - Labs CBC & Chem 7: 02/11/19 04:21 02/11/19 04:21 Labs: Short CBC 02/11/19 Range/Units 04:21 WBC 17.4 H D (4.3-11.1) K/mcL Hgb 13.2 (12.9-16.9) g/dL Hct 42.6 (37.5-50.1) % Plt Count 333 (140-400) K/mcL Neutrophils # 13.3 H (1.6-8.9) K/mcL BMP 02/11/19 04:21 Sodium 143 Potassium 3.9 Chloride 104 Carbon Dioxide 31 H BUN 21 Creatinine 1.09 Glucose 88 Calcium 8.5 L - ABG Interpretation ABG results: ABG ABG pH 7.40 pH Units (7.32-7.45) 02/09/19 10:50 ABG pCO2 41 mmHg (35-45) 02/09/19 10:50 ABG pO2 59 mmHg (85-104) L 02/09/19 10:50 ABG O2 Saturation 90 % (95-98) L 02/09/19 10:50 PT/INR, D-dimer PT 13.0 Seconds (9.4-12.1) H 02/08/19 16:00 810 ng/mLFEU (0-500) H 02/09/19 10:23 - Impressions Impressions Echocardiogram 02/10/19 07:29 Impressions: LVEF 50%. Normal LV chamber size, wall thickness and function. Normal right ventricular structure and function. No significant valvular dysfunction. No evidence of pulmonary hypertension. Left Ventricular Wall Motion: Rest Echo Findings All wall segments showed normal motion. Findings: Study Quality * Technically sub-optimal due to clinical status. ECG Findings * Sinus tachycardia. Left Ventricle * LVEF 50%. * Normal LV chamber size, wall thickness and systolic function. * Normal left ventricular diastolic function. Right Ventricle * Normal right ventricular structure and function. Left Atrium * Normal left atrial size. Right Atrium * Normal right atrial size. Interatrial Septum * Interatrial septum not well evaluated. Aortic Valve * Trileaflet aortic valve with normal function. * No aortic stenosis. * No aortic regurgitation. Mitral Valve * Normal mitral valve structure. * No mitral stenosis. * Trace mitral regurgitation. Tricuspid Valve * Normal tricuspid valve structure. * No tricuspid stenosis. * Trace tricuspid regurgitation. * Unable to estimate RVSP due to lack of TR jet and IVC visualization. * No evidence of pulmonary hypertension. Pulmonic Valve * Pulmonic valve is not well visualized. * No pulmonic stenosis. * No pulmonic regurgitation. Aorta * The aortic root is mildly dilated at 3.6 cm. Pericardium * The pericardium appears normal. IVC * The IVC is not well evaluated. Consult Discharge Plan - Plan Referrals: Bryce Garcia MD [Primary Care Provider] - (3) Pneumonia Qualifiers: Pneumonia type: due to unspecified organism Laterality: left Lung location: lower lobe of lung Qualified Code(s): J18.1 - Lobar pneumonia, unspecified organism
--- NOTE | 2019-02-11 11:00 | Pulmonology Consult Note ---
Date of Encounter: 02/11/19 Time of Encounter: 10:40 Assessment and Plan (1) Acute hypoxemic respiratory failure Current Visit: Yes Status: Acute Reviewing patient's CT chest is very interesting with bilateral infiltrates and differential diagnosis is broad especially with his recent tick bite and he has sickness after that. Patient is being treated with broad-spectrum antibiotics and he was treated as outpatient as well. He is feeling slightly better I have discussed with him regarding bronchoscopy and that might help management and I also discussed this with primary team. Patient wants to wait until tomorrow and if he is not doing any better then he might consider it for that reason we will keep him nothing by mouth postmidnight and will tentatively schedule him for bronchoscopy. A bronchoscopy is recommended. The procedure , risks, benefits, complications, and expected outcomes have been reviewed. Benefits of diagnosis, as well as risks to include bleeding, infection, pneumothorax which may require surgical intervention, and in a small population. The patient is aware that sometimes test is nondiagnostic. Discussed with patient and agrees to proceed. Thank you for consultation (2) COPD exacerbation Current Visit: Yes Status: Suspected Patient is on broad-spectrum antibiotics and systemic steroid. He will need outpatient workup with PFT and he will need to be evaluated for oxygen before discharge home. (3) Pneumonia Current Visit: Yes Status: Acute Patient is being treated with broad-spectrum antibiotic. Qualifiers: Pneumonia type: due to unspecified organism Laterality: left Lung location: lower lobe of lung Qualified Code(s): J18.1 - Lobar pneumonia, unspecified organism History of Present Illness Consult date: 02/11/19 Requesting physician: Ashish Mccormack Reason for consult: pneumonia Chief complaint: Shortness of breath History of present illness: This is a pleasant 68-year-old male with significant history of COPD and he is not regularly on inhalers or home oxygen presented to emergency room with worsening of his shortness of breath. He is feeling slightly better but still requiring high oxygen and he had CT chest which was abnormal and pulmonary consulted for evaluation. Patient is being treated with broad-spectrum antibiotics and systemic steroid. Patient denies any history of TB. Patient denies any significant fever or chills. Patient stated that he was treated for tick bite disease by his PCP. Patient has nonproductive cough and having clear sputum. Denies any significant wheezing and denies any hemoptysis. Patient denies any sick contact. He denies any other symptoms at this time. He does report intentional weight loss. Past Med Surg Social Fam HX - Past Medical History Medical history: asthma, COPD, hypertension Additional medical history: pre-diabetes - Past Surgical History Surgical History: non-contributory - Social History Smoking Status: Former smoker Smokeless Tobacco Status: No Alcohol use: none Drug use: none - Family History Father History Unknown: Yes Family Member Ethnicity: Non- Living Status: Unknown Medications and Allergies Aspirin [Lo-Dose Aspirin EC] 81 mg PO DAILY 02/08/19 [History] Bupropion HCl [Wellbutrin Xl] 300 mg PO QAM 02/08/19 [History] Oxybutynin Chloride [Ditropan Xl] 10 mg PO HS PRN 02/08/19 [History] Simvastatin [Zocor] 20 mg PO HS 02/08/19 [History] clonazePAM [Clonazepam] 1 mg PO 1200 02/08/19 [History] clonazePAM [Clonazepam] 2 mg PO BID 02/08/19 [History] Allergy/AdvReac Type Severity Reaction Status Date / Time No Known Allergies Allergy Verified 07/30/18 12:58 All Systems: The remainder of the systems were reviewed and are negative Physical Examination Vital Signs: Vital Signs, Last 4 Hours Temp Pulse Resp BP Pulse Ox 02/11/19 08:01 98.4 F 93 18 125/87 92 02/11/19 07:13 18 96 General: Patient is in no acute distress. HEENT: Normocephalic atraumatic, pupils are equal round and reactive to light and accommodation, anicteric sclera, nares is patent, mucous membranes moist, no JVD, trachea is midline Cardiovascular: Normal sinus rhythm, S1 and S2 audible, no murmur or rubs Respiratory: Scattered rhonchi to auscultation bilaterally. No acute distress. No wheezing. Patient not using accessory muscles. Abdomen: Soft, nontender, nondistended, positive bowel sounds in all 4 quadrants Extremities: Warm, dry, trace lower extremity edema. Normal capillary refill. Neuro: Alert and oriented and follows commands. Grossly no neuro deficits. Skin: Warm to touch : No obvious abnormalities. Psych: Normal Results - Laboratory Findings CBC and BMP: 02/11/19 04:21 02/11/19 04:21 ABG ABG pH 7.40 pH Units (7.32-7.45) 02/09/19 10:50 ABG pCO2 41 mmHg (35-45) 02/09/19 10:50 ABG pO2 59 mmHg (85-104) L 02/09/19 10:50 ABG O2 Saturation 90 % (95-98) L 02/09/19 10:50 PT/INR, D-dimer PT 13.0 Seconds (9.4-12.1) H 02/08/19 16:00 810 ng/mLFEU (0-500) H 02/09/19 10:23 Abnormal lab findings: Abnormal lab results WBC 17.4 K/mcL (4.3-11.1) H D 02/11/19 04:21 RBC 4.16 M/mcL (4.19-5.50) L 02/09/19 04:57 MCV 101.7 fL (83.0-100.0) H 02/11/19 04:21 MCHC 31.0 g/dL (31.6-35.5) L 02/11/19 04:21 RDW 15.6 % (11.5-14.5) H 02/11/19 04:21 MPV 9.3 fL (9.4-12.4) L 02/11/19 04:21 13.3 K/mcL (1.6-8.9) H 02/11/19 04:21 0.5 K/mcL (0.6-4.6) L 02/09/19 04:57 1.6 K/mcL (0.0-1.3) H 02/11/19 04:21 1.6 K/mcL (0.0-0.6) H 02/08/19 16:00 PT 13.0 Seconds (9.4-12.1) H 02/08/19 16:00 810 ng/mLFEU (0-500) H 02/09/19 10:23 ABG pO2 59 mmHg (85-104) L 02/09/19 10:50 ABG Total CO2 27 mEq/L (20-26) H 02/09/19 10:50 ABG O2 Saturation 90 % (95-98) L 02/09/19 10:50 Carbon Dioxide 31 mEq/L (23-29) H 02/11/19 04:21 Glucose 106 mg/dL (70-105) H 02/10/19 08:37 POC Glucose 125 mg/dL (70-99) H 02/10/19 11:34 Lactic Acid 2.6 mmol/L (0.5-2.2) H 02/08/19 16:00 Calcium 8.5 mg/dL (8.6-10.3) L 02/11/19 04:21 Phosphorus 1.9 mg/dL (2.7-4.5) L 02/09/19 04:57 - Diagnostic Findings CT scan - chest: report reviewed, image reviewed - Clinical Findings Intake & Output: Intake & Output 02/10/19 02/11/19 02/11/19 23:59 07:59 15:59 Weight 104.5 kg Consult Discharge Plan - Plan Referrals: Bryce Garcia MD [Primary Care Provider] -
[2019-02-11] MEDS: Piperacillin/Tazobactam 3.375 GM in 0.9 % Sodium Chloride Mini Bag 100 ML IVPB SCH ×2 (12:12→16:19)
[2019-02-11] MEDS: Budesonide/Formoterol 160/4.5 1 PUFF INH IH SCH (19:53)
[2019-02-12] MEDS: Ipratropium/Albuterol Neb 3 ML IH SCH ×5 (00:01→16:12)
[2019-02-12] MEDS: Piperacillin/Tazobactam 3.375 GM in 0.9 % Sodium Chloride Mini Bag 100 ML IVPB SCH ×2 (00:31→08:56)
[2019-02-12] MEDS: *HR* Heparin 5,000 UNIT/ML VIAL SQ SCH (05:17)
[2019-02-12 07:01] LABS: Basophils % 0.1 %; Eosinophils # 0.3 K/mcL (0.0-0.6); Eosinophils % 2.5 %; Hematocrit 41.9 % (37.5-50.1); Hemoglobin 13.2 g/dL (12.9-16.9); Immature Granulocytes % 0.4 % (0-4); Lymphocytes # 1.9 K/mcL (0.6-4.6); Lymphocytes % 13.9 %; Mean Corpuscular HGB Conc 31.5 g/dL (31.6-35.5); Mean Corpuscular Hemoglobin 31.6 pg (28.0-33.3); Mean Corpuscular Volume 100.2 fL (83.0-100.0); Mean Platelet Volume 9.1 fL (9.4-12.4); Monocytes # 1.3 K/mcL (0.0-1.3); Monocytes % 9.8 %; Neutrophils # 9.9 K/mcL (1.6-8.9); Platelet Count 333 K/mcL (140-400); Red Blood Count 4.18 M/mcL (4.19-5.50); Red Cell Distribution Width 15.3 % (11.5-14.5); Segmented Neutrophils % 73.3 %
[2019-02-12 07:16] VITALS: BP 111/75
[2019-02-12] MEDS: Budesonide/Formoterol 160/4.5 1 PUFF INH IH SCH (07:27)
[2019-02-12 07:38] LABS: BUN/Creatinine Ratio 22 (6-26); Blood Urea Nitrogen 23 mg/dL (8-23); Calcium 8.5 mg/dL (8.6-10.3); Carbon Dioxide 31 mEq/L (23-29); Chloride 103 mEq/L (98-107); Glucose 117 mg/dL (70-105); Magnesium 2.1 mg/dL (1.6-2.6); Osmolality,Calculated 301 (280-300); Potassium 3.3 mEq/L (3.5-5.1); Sodium 143 mEq/L (136-145); eGFR For Non-African Americans > 60 (> 60)
[2019-02-12] MEDS: clonazePAM 1 MG TABLET PO SCH ×2 (08:55→11:50)
[2019-02-12] MEDS: BuPROPion XL (24 HR) 150 MG TABLET PO SCH (08:55)
[2019-02-12] MEDS: predniSONE 20 MG TABLET PO SCH (08:55)
[2019-02-12] MEDS: Furosemide 40 MG/4 ML VIAL IVP SCH (08:55)
[2019-02-12] MEDS: Insulin LISPRO 300 UNITS/3 ML VIAL SQ SCH ×2 (08:57→11:50)
--- NOTE | 2019-02-12 13:59 | Discharge Summary ---
Orders not resulted at time of discharge: Pending orders 02/08/19 17:04 Culture,Blood [BC] Stat 02/08/19 17:36 Sputum Culture [Culture,Sputum with Gram Stain] [] Stat Date of Encounter: 02/12/19 Time of Encounter: 13:57 - Discharge Diagnosis (1) Acute hypoxemic respiratory failure Priority: Primary Status: Resolved (2) COPD exacerbation Priority: Secondary Status: Suspected (3) Pneumonia Priority: Primary Status: Acute Qualifiers: Pneumonia type: due to unspecified organism Laterality: left Lung location: lower lobe of lung Qualified Code(s): J18.1 - Lobar pneumonia, unspecified organism (4) Pre-diabetes Priority: Secondary Status: Chronic (5) Epigastric abdominal pain Priority: Secondary Status: Chronic (6) Hypophosphatemia Priority: Secondary Status: Resolved Hospital course: Mr. Salcedo is a 68 year old male HTN, pre-diabetis, and COPD not on O2. Patient presented to the ED due to shortness of breath. He reports that about 2 weeks ago he started feeling short of breath and he went to his PCP and was prescribe some antibiotics and a steroids taper. Reports his symptoms improved for a couple of days but for the past 4 days he has been feeling short of breath, the shortness of breath has worsens to the point he is short of breath even talking on the phone. Patient was admitted to the hospital due to acute hypoxemic respiratory failure. managed with IV antibiotics, IV steroids and O2 supplement. as patient did not improve a CTA of the chest was done to r/o PE: 1. No CT evidence of a pulmonary embolism. 2. Widespread multifocal airspace consolidation throughout both lungs, most consistent with multifocal pneumonia and/or superimposed edema. Intralobular septal thickening throughout both lungs suggest an element of interstitial pulmonary edema. 3. Mild mediastinal and bilateral hilar lymphadenopathy is most likely benign and reactive in etiology. TTE done: unremarkable. Patient acute symptoms resolved, patient on 3 litters of O2 by nasal cannula. Patient clinically stable to be discharged home. Pulmonology consulted recommended Bronchoscopy but patient refused. Recommended to follow up with pulm as outpatient to have a repeat ct of the chest after a month of treatment completion. - Time Spent with Patient Total time spent providing and/or coordinating discharge services: Time spent: Greater than 30 minutes (35) - Discharge Medications Prescriptions: New Albuterol Sulfate [Albuterol Inhaler] 1 puff IH Q4HR 30 Days #2 hfa.aer.ad MethylPREDNISolone [MethylPREDNISolone Dose Pack] 4 mg PO DAILY 7 Days #21 tab Budesonide/Formoterol 160/4.5 [Symbicort 160/4.5] 2 puff IH BIDR 30 Days #2 inh Amoxicillin/Clavulanate [Augmentin] 875 mg PO BIDWM 7 Days #14 tablet Continued clonazePAM [Clonazepam] 2 mg PO BID clonazePAM [Clonazepam] 1 mg PO 1200 Bupropion HCl [Wellbutrin Xl] 300 mg PO QAM Simvastatin [Zocor] 20 mg PO HS Oxybutynin Chloride [Ditropan Xl] 10 mg PO HS PRN PRN Reason: BLADDER Aspirin [Lo-Dose Aspirin EC] 81 mg PO DAILY Home Medications: Aspirin [Lo-Dose Aspirin EC] 81 mg PO DAILY 02/08/19 [History] Bupropion HCl [Wellbutrin Xl] 300 mg PO QAM 02/08/19 [History] Oxybutynin Chloride [Ditropan Xl] 10 mg PO HS PRN 02/08/19 [History] Simvastatin [Zocor] 20 mg PO HS 02/08/19 [History] clonazePAM [Clonazepam] 1 mg PO 1200 02/08/19 [History] clonazePAM [Clonazepam] 2 mg PO BID 02/08/19 [History] Albuterol Sulfate [Albuterol Inhaler] 1 puff IH Q4HR 30 Days #2 hfa.aer.ad 02/12/19 [Rx] Amoxicillin/Clavulanate [Augmentin] 875 mg PO BIDWM 7 Days #14 tablet 02/12/19 [Rx] Budesonide/Formoterol 160/4.5 [Symbicort 160/4.5] 2 puff IH BIDR 30 Days #2 inh 02/12/19 [Rx] MethylPREDNISolone [MethylPREDNISolone Dose Pack] 4 mg PO DAILY 7 Days #21 tab 02/12/19 [Rx] Allergies/Adverse Reactions: Allergy/AdvReac Type Severity Reaction Status Date / Time No Known Allergies Allergy Verified 07/30/18 12:58 Date of admission: 02/09/19 11:35 Primary care physician: Bryce Garcia MD Consults: 02/11/19 10:47 Consult to Pulmonology [CONS] Routine Consulting Provider: [facility] Reason for Consult: hypoxemic respiratory failure Call Completed: Yes - Constitutional Vitals: Temp Pulse Resp BP Pulse Ox 98.0 F 97 16 111/75 99 02/12/19 07:13 02/12/19 07:13 02/12/19 11:24 02/12/19 07:13 02/12/19 11:24 Exam: Vitals: Reviewed General: Alert and oriented x4. In no distress Cardiovascular: RRR, normal S1 & S2, no rubs, murmurs or gallops. Lungs: No wheezes,crackles or rales. Abdomen: Soft, non-tender, no rigidity. Extremities: No edema Neurological: Normal cognition Rest of the physical exam is non contributory - Patient Status Disposition: Home, Self-Care Condition: Good Functional capacity at discharge: independent ambulation Overall status at discharge: patient is back to baseline - Discharge Instructions Follow Up With: Bryce Garcia MD [Primary Care Provider] - Forms: ED Satisfaction Letter - Diet and Activity Activity: wear oxygen at all times (3 litters ) Diet: low salt diet
--- NOTE | 2019-02-12 17:02 | Pulmonology Progress Note ---
Date of Encounter: 02/12/19 Time of Encounter: 06:45 Assessment and Plan (1) Acute hypoxemic respiratory failure Status: Resolved (2) COPD exacerbation Status: Suspected (3) Pneumonia Status: Acute I have seen and examined the patient this morning and he was scheduled for bronchoscopy, however patient did not want the procedure and he stated he is feeling better. Have discussed with the primary team about this. I have cancelled his bronchoscopy that was scheduled this morning. Patient will need to follow-up CT chest in about 6-8 weeks and he can follow-up as outpatient. Treating him with empiric antibiotics is recommended for at least 7-10 days. He needs to use his oxygen at this time and he can be reevaluated 20 follows up in the clinic. Qualifiers: Pneumonia type: due to unspecified organism Laterality: left Lung location: lower lobe of lung Qualified Code(s): J18.1 - Lobar pneumonia, unspecified organism Subjective Principal diagnosis: Dyspnea Interval history: Patient stated he is feeling much better and he did drink this morning and he doesn't need O2 Objective PUL Vital signs: Last Vital Signs Temp 98.0 F 02/12/19 07:13 Pulse 97 02/12/19 07:13 Resp 16 02/12/19 11:24 BP 111/75 02/12/19 07:13 Pulse Ox 99 02/12/19 11:24 General appearance: no acute distress Eyes: nonicteric ENT: oropharynx moist Neck: supple Effort: normal Auscultation: bilateral: rhonchi Percussion: bilateral: not dull Cardiovascular: regular rate and rhythm Gastrointestinal: normoactive bowel sounds, non-distended Extremities: no cyanosis normal mental status, non-focal exam mood appropriate Results - Laboratory Findings CBC and BMP: 02/12/19 06:39 02/12/19 06:39 ABG ABG pH 7.40 pH Units (7.32-7.45) 02/09/19 10:50 ABG pCO2 41 mmHg (35-45) 02/09/19 10:50 ABG pO2 59 mmHg (85-104) L 02/09/19 10:50 ABG O2 Saturation 90 % (95-98) L 02/09/19 10:50 PT/INR, D-dimer PT 13.0 Seconds (9.4-12.1) H 02/08/19 16:00 810 ng/mLFEU (0-500) H 02/09/19 10:23 Abnormal lab findings: Abnormal lab results WBC 13.5 K/mcL (4.3-11.1) H 02/12/19 06:39 RBC 4.18 M/mcL (4.19-5.50) L 02/12/19 06:39 MCV 100.2 fL (83.0-100.0) H 02/12/19 06:39 MCHC 31.5 g/dL (31.6-35.5) L 02/12/19 06:39 RDW 15.3 % (11.5-14.5) H 02/12/19 06:39 MPV 9.1 fL (9.4-12.4) L 02/12/19 06:39 9.9 K/mcL (1.6-8.9) H 02/12/19 06:39 0.5 K/mcL (0.6-4.6) L 02/09/19 04:57 1.6 K/mcL (0.0-1.3) H 02/11/19 04:21 1.6 K/mcL (0.0-0.6) H 02/08/19 16:00 PT 13.0 Seconds (9.4-12.1) H 02/08/19 16:00 810 ng/mLFEU (0-500) H 02/09/19 10:23 ABG pO2 59 mmHg (85-104) L 02/09/19 10:50 ABG Total CO2 27 mEq/L (20-26) H 02/09/19 10:50 ABG O2 Saturation 90 % (95-98) L 02/09/19 10:50 Potassium 3.3 mEq/L (3.5-5.1) L 02/12/19 06:39 Carbon Dioxide 31 mEq/L (23-29) H 02/12/19 06:39 Glucose 117 mg/dL (70-105) H 02/12/19 06:39 POC Glucose 119 mg/dL (70-99) H 02/12/19 07:15 301 (280-300) H 02/12/19 06:39 Lactic Acid 2.6 mmol/L (0.5-2.2) H 02/08/19 16:00 Calcium 8.5 mg/dL (8.6-10.3) L 02/12/19 06:39 Phosphorus 1.9 mg/dL (2.7-4.5) L 02/09/19 04:57 - Clinical Findings Intake & Output: Intake & Output 02/12/19 02/12/19 02/12/19 07:59 15:59 23:59 Intake Total 220 / 460 240 / 460 Output Total 800 / 800 Balance 220 / -340 -560 / -340 Weight 104 kg Consult Discharge Plan - Plan Instructions: Sepsis (DC), Pneumonia (DC) Referrals: Bryce Garcia MD [Primary Care Provider] - (Please make hospital follow up appointment ) Clari Savage MD [Partnered Physician] - () Prescriptions: Albuterol Sulfate [Albuterol Inhaler] 1 puff IH Q4HR 30 Days #2 hfa.aer.ad Amoxicillin/Clavulanate [Augmentin] 875 mg PO BIDWM 7 Days #14 tablet MethylPREDNISolone [MethylPREDNISolone Dose Pack] 4 mg PO DAILY 7 Days #21 tab Budesonide/Formoterol 160/4.5 [Symbicort 160/4.5] 2 puff IH BIDR 30 Days #2 inh
== END 2019-02-12 18:43 | disposition home or self-care (01) | DRG 193 ==
LOC: 2NENU 15:44 → EMEROOARM 15:44 → SUATTDRO 17:24 → 2NENU 18:39
PROVIDERS: ADMIT Internal Medicine; ATTEND Internal Medicine